=== PATIENT | male | born 1980 | race Caucasian/White ===

== ENCOUNTER 2020-06-19 12:13 | Emergency (ER) | payer BC ==
[~2020-06-19] VITALS: Ht 180.3 cm; Wt 124.7 kg
[2020-06-19 12:31] VITALS: Ht 180.3 cm; Wt 124.7 kg
[2020-06-19 15:10] VITALS: BP 138/75
== END 2020-06-19 15:10 | disposition home or self-care (01) ==
LOC: ED 12:13
DX: S61.012A Laceration without foreign body of left thumb without damage to nail, initial encounter (principal); W45.8XXA Other foreign body or object entering through skin, initial encounter; Y93.89 Activity, other specified; Y92.89 Other specified places as the place of occurrence of the external cause; Y99.8 Other external cause status
CPT/HCPCS: J2001